=== PATIENT | female | born 1995 | race Caucasian/White ===

== ENCOUNTER 2021-07-28 21:18 | Observation (INO) ==
[2021-07-28] MEDS ORDERED: ACETAMINOPHEN/CODEINE 300-30 MG TABLET PO PRN (21:33)
[2021-07-28 21:55] LABS: Bacteria,Urine Occasional /HPF (Few); Bilirubin,Urine Negative (Negative); Blood, Urine Negative (Negative); Glucose,Urine (UA) Negative (Negative); Ketones,Urine 20 mg/dL (Negative); Mucus,Urine Occasional /LPF (Occasional); Nitrite,Urine Negative (Negative); Protein,Urine Negative; RBC,Urine 4 /HPF (0-4); Squamous Epithelial Cell,Urine Moderate /HPF (0-10); Urine Appearance Slightly Hazy (Clear); Urine Color Yellow (Yellow); Urine Specific Gravity 1.009 (1.001-1.035)
[2021-07-28] MEDS: LACTATED RINGERS 1,000 ML IV SCH (22:10)
[2021-07-28] MEDS: BUTORPHANOL 1 MG/ML VIAL IV PRN (22:25)
[2021-07-28] MEDS: ONDANSETRON 4 MG/2 ML VIAL IV PRN (22:27)
[2021-07-28] MEDS: PIPERACILLIN/TAZOBACTAM 3,375 MG in SODIUM CHLORIDE 0.9% 100 ML IV SCH (22:31)
[2021-07-28 22:56] LABS: Basophils % 0.2 % (0.0-0.8); Hematocrit 31.5 VOL% (35.7-47.0); Hemoglobin 10.2 GM/DL (12.0-16.0); Immature Granulocytes % 0.9 %; Immature Granulocytes Absolute 0.11 #; Lymphocytes % 7.8 % (21.3-54.2); Mean Corpuscular HGB Conc 32.4 GM/DL (32-36); Mean Corpuscular Volume 88.2 FL (87-102); Mean Platelet Volume 9.4 FL (9.6-12.0); Monocytes % 10.3 % (1.7-12.7); Neutrophils % 80.8 % (38.7-73.9); Platelet Count 355 T/CUMM (130-400); Red Blood Count 3.57 MC/CUMM (3.8-5.5); Red Cell Distribution Width 13.9 % (9.3-17.3); White Blood Count 12.5 T/CUMM (4-12)
[2021-07-28 23:17] LABS: Band Neutrophils 1 % (0-10); Lymphocytes 9 % (20-55); Platelet Estimate Normal; Segmented Neutrophils 86 % (50-85); Total Cells Counted 100
[2021-07-28 23:21] LABS: Albumin 2.4 G/DL (3.4-5.0); Bilirubin,Total 0.7 MG/DL (0.20-1.00); Calcium 9.4 MG/DL (8.5-10.1); Osmolality,Calculated 264.2 MOS/KG (273-304); Potassium 3.4 MMOL/L (3.5-5.1); Total Protein 7.6 G/DL (6.4-8.2)
[2021-07-29] MEDS: LACTATED RINGERS 1,000 ML IV SCH ×6 (01:03→22:55)
[2021-07-29] MEDS: BUTORPHANOL 1 MG/ML VIAL IV PRN ×3 (01:44→11:27)
[2021-07-29] MEDS ORDERED: SODIUM CHLORIDE 0.9% 3,400 ML IV ONE (04:30)
[2021-07-29] MEDS: ONDANSETRON 4 MG/2 ML VIAL IV PRN ×2 (04:40→11:34)
[2021-07-29] MEDS: ACETAMINOPHEN 500 MG TABLET PO PRN ×2 (04:47→11:24)
[2021-07-29] MEDS: PIPERACILLIN/TAZOBACTAM 3,375 MG in SODIUM CHLORIDE 0.9% 100 ML IV SCH ×3 (06:00→21:55)
[2021-07-29 06:42] LABS: Bacteria,Urine Occasional /HPF (Few); Bilirubin,Urine Negative (Negative); Blood, Urine Small mg/dL (Negative); Glucose,Urine (UA) Negative (Negative); Ketones,Urine 80 mg/dL (Negative); Mucus,Urine Occasional /LPF (Occasional); Nitrite,Urine Negative (Negative); Protein,Urine Negative; RBC,Urine 4 /HPF (0-4); Squamous Epithelial Cell,Urine Occasional /HPF (0-10); Urine Appearance CLEAR (Clear); Urine Color Amber (Yellow); Urine Specific Gravity 1.012 (1.001-1.035)
[2021-07-29] MEDS ORDERED: fentaNYL 100 MCG/2 ML VIAL ONE (10:26)
[2021-07-29] MEDS ORDERED: SODIUM CHLORIDE 0.9% 100 ML IV ONE (10:26)
[2021-07-29] MEDS ORDERED: propofoL 200 MG/20 ML VIAL IV ONE (10:26)
[2021-07-29] MEDS ORDERED: LIDOCAINE 1% 5 ML VIAL ONE (10:26)
[2021-07-29] MEDS: BUTALBITAL/ACETAMIN/CAFFEINE 50-325-40 MG TABLET PO PRN (15:44)
[2021-07-30] MEDS: ONDANSETRON 4 MG/2 ML VIAL IV PRN ×2 (00:11→23:37)
[2021-07-30] MEDS: BUTORPHANOL 1 MG/ML VIAL IV PRN ×2 (00:11→04:25)
[2021-07-30 05:25] LABS: Basophils % 0.2 % (0.0-0.8); Eosinophils % 0.4 % (0.00-10.9); Hematocrit 27.1 VOL% (35.7-47.0); Hemoglobin 8.5 GM/DL (12.0-16.0); Immature Granulocytes % 0.9 %; Immature Granulocytes Absolute 0.05 #; Lymphocytes # 0.4 10*3/uL (1.4-4.0); Mean Corpuscular HGB Conc 31.4 GM/DL (32-36); Mean Corpuscular Volume 90.3 FL (87-102); Neutrophils % 83.5 % (38.7-73.9); Platelet Count 261 T/CUMM (130-400); Red Cell Distribution Width 14.3 % (9.3-17.3); White Blood Count 5.4 T/CUMM (4-12)
[2021-07-30] MEDS: PIPERACILLIN/TAZOBACTAM 3,375 MG in SODIUM CHLORIDE 0.9% 100 ML IV SCH ×3 (05:26→21:56)
[2021-07-30 05:48] LABS: Anisocytosis 1+; Band Neutrophils 7 % (0-10); Lymphocytes 3 % (20-55); Platelet Estimate Normal; Segmented Neutrophils 81 % (50-85); Total Cells Counted 100
[2021-07-30] MEDS: BUTALBITAL/ACETAMIN/CAFFEINE 50-325-40 MG TABLET PO PRN (08:41)
[2021-07-30] MEDS: MULTIVITAMIN (PRENATAL) TABLET PO SCH (08:41)
[2021-07-30] MEDS ORDERED: CLINDAMYCIN INJ 900 MG/50 ML PREMIX IV SCH (10:00)
[2021-07-30] MEDS: DOCUSATE SODIUM 100 MG CAPSULE PO SCH ×2 (13:05→20:47)
[2021-07-31] MEDS: PIPERACILLIN/TAZOBACTAM 3,375 MG in SODIUM CHLORIDE 0.9% 100 ML IV SCH ×2 (05:49→14:19)
[2021-07-31 08:22] LABS: Calcium 8.6 MG/DL (8.5-10.1); Osmolality,Calculated 270.7 MOS/KG (273-304); Potassium 3.1 MMOL/L (3.5-5.1)
[2021-07-31] MEDS: DOCUSATE SODIUM 100 MG CAPSULE PO SCH ×2 (08:56→20:50)
[2021-07-31] MEDS: MULTIVITAMIN (PRENATAL) TABLET PO SCH (08:56)
[2021-07-31] MEDS ORDERED: NON-FORMULARY MEDICATION (Pnv133-Ferrous Fumarate-Fa [Prenatal] 28-800 mg-mcg Tablet) PO SCH (09:00)
[2021-07-31] MEDS: POTASSIUM CHLORIDE 20 MEQ TABLET PO PRN ×4 (10:45→16:40)
[2021-07-31] MEDS: ONDANSETRON 4 MG/2 ML VIAL IV PRN (11:14)
[2021-07-31] MEDS ORDERED: cefTRIAXone 1,000 MG in SODIUM CHLORIDE 0.9% 100 ML IV SCH (16:00)
== END 2021-08-01 09:45 | disposition home or self-care (01) ==
LOC: N.LD 21:18 → N.LDOUT 21:18 → N.LD 21:23
PROVIDERS: ADMIT Specialist; ATTEND Specialist

== ENCOUNTER 2021-09-03 03:09 | Inpatient (IN) ==
[2021-09-03] MEDS ORDERED: MEPERIDINE 50 MG/1 ML VIAL IV PRN (03:41)
[2021-09-03] MEDS ORDERED: ONDANSETRON 4 MG/2 ML VIAL IV PRN ×2 (03:41→15:47)
[2021-09-03] MEDS ORDERED: BUTORPHANOL 2 MG/ML VIAL IV PRN (03:41)
[2021-09-03 03:59] LABS: Bacteria,Urine Occasional /HPF (Few); Bilirubin,Urine Negative (Negative); Blood, Urine Small mg/dL (Negative); Glucose,Urine (UA) Negative (Negative); Ketones,Urine Negative (Negative); Mucus,Urine Occasional /LPF (Occasional); Nitrite,Urine Negative (Negative); Protein,Urine Negative; RBC,Urine 4 /HPF (0-4); Squamous Epithelial Cell,Urine Few /HPF (0-10); Urine Appearance Slightly Hazy (Clear); Urine Color Yellow (Yellow); Urine Specific Gravity 1.008 (1.001-1.035); Urine Urobilinogen < 2.0 EU/DL (<2.0)
[2021-09-03] MEDS ORDERED: OXYTOCIN/LR 20 UNIT/1,000 ML BAG IV SCH (04:00)
[2021-09-03] MEDS: LACTATED RINGERS 1,000 ML IV PRN ×2 (04:37→07:45)
[2021-09-03 05:00] LABS: Basophils % 0.2 % (0.0-0.8); Eosinophils % 0.3 % (0.00-10.9); Hemoglobin 10.3 GM/DL (12.0-16.0); Immature Granulocytes % 0.8 %; Immature Granulocytes Absolute 0.08 #; Lymphocytes # 1.4 10*3/uL (1.4-4.0); Lymphocytes % 13.6 % (21.3-54.2); Mean Corpuscular HGB Conc 32.2 GM/DL (32-36); Mean Corpuscular Volume 88.9 FL (87-102); Mean Platelet Volume 9.7 FL (9.6-12.0); Neutrophils % 78.1 % (38.7-73.9); Platelet Count 294 T/CUMM (130-400); Red Cell Distribution Width 15.1 % (9.3-17.3); White Blood Count 10.3 T/CUMM (4-12)
[2021-09-03 05:18] LABS: Alanine Aminotransferase 16 U/L (13-56); Albumin 2.6 G/DL (3.4-5.0); Alkaline Phosphatase 170 U/L (45-117); Aspartate Amino Transferase 10 U/L (0-37); Bilirubin,Total < 0.39 MG/DL (0.20-1.00); Blood Urea Nitrogen 4 MG/DL (7-18); Calcium 8.8 MG/DL (8.5-10.1); Carbon Dioxide 22 MMOL/L (21-32); Estimated Glom Filtration Rate 167 ML/MIN; Glucose 93 MG/DL (74-106); Osmolality,Calculated 266.1 MOS/KG (273-304); Potassium 3.5 MMOL/L (3.5-5.1); Sodium 135 MMOL/L (136-145); Total Protein 6.9 G/DL (6.4-8.2)
[2021-09-03] MEDS ORDERED: PROMETHAZINE 25 MG/1 ML VIAL IM PRN (07:21)
[2021-09-03] MEDS ORDERED: diphenhydrAMINE 50 MG/1 ML VIAL IV PRN (07:21)
[2021-09-03] MEDS ORDERED: NALOXONE 0.4 MG/ML VIAL IV PRN (07:21)
[2021-09-03] MEDS ORDERED: CITRIC ACID/SODIUM CITRATE 30 ML UDCUP PO ONE (07:21)
[2021-09-03] MEDS ORDERED: hydrOXYzine HCL 25 MG/1 ML VIAL IM PRN (07:21)
[2021-09-03] MEDS ORDERED: FAMOTIDINE 20 MG/2 ML VIAL IV ONE (07:21)
[2021-09-03] MEDS: fentaNYL 2 MCG/ROPIV 0.2% EPID 100 ML EPIDURAL SCH ×2 (07:56→14:58)
[2021-09-03] MEDS: ePHEDrine 50 MG/ML VIAL IV PRN ×3 (08:42→09:02)
[2021-09-03 10:08] LABS: Bilirubin,Urine Negative (Negative); Blood, Urine Negative (Negative); Glucose,Urine (UA) Negative (Negative); Ketones,Urine 5 mg/dL (Negative); Mucus,Urine Few /LPF (Occasional); Nitrite,Urine Negative (Negative); Protein,Urine Negative; RBC,Urine <1 /HPF (0-4); Squamous Epithelial Cell,Urine Occasional /HPF (0-10); Urine Appearance CLEAR (Clear); Urine Color Yellow (Yellow); Urine Specific Gravity 1.011 (1.001-1.035); Urine Urobilinogen < 2.0 EU/DL (<2.0)
[2021-09-03] MEDS ORDERED: METHYLERGONOVINE 0.2 MG/1 ML AMP ONE (14:39)
[2021-09-03] MEDS ORDERED: miSOPROStoL 200 MCG TABLET ONE (14:39)
[2021-09-03] MEDS ORDERED: BISACODYL 10 MG SUPP RECTAL PRN (15:47)
[2021-09-03] MEDS ORDERED: BENZOCAINE 20%/MENTHOL 0.5% SPRAY 56 GM CAN TOP PRN (15:47)
[2021-09-03] MEDS ORDERED: DIPH/TET/ACEL PERT BOOSTER VACCINE 0.5 ML VIAL IM ONE (15:47)
[2021-09-03] MEDS ORDERED: OXYTOCIN/LR 20 UNIT/1,000 ML BAG IV ONE (15:47)
[2021-09-03] MEDS ORDERED: oxyCODONE/ACETAMINOPHEN 5-325 MG TABLET PO PRN ×2 (15:47)
[2021-09-03] MEDS ORDERED: MEASLES/MUMPS/RUBELLA VACCINE 0.5 ML VIAL SUBCUT ONE (15:47)
[2021-09-03] MEDS ORDERED: ACETAMINOPHEN 325 MG TABLET PO PRN (15:47)
[2021-09-03] MEDS ORDERED: WITCH HAZEL PADS 100/JAR TOP PRN (15:47)
[2021-09-03] MEDS ORDERED: RHO(D) IMMUNE GLOBULIN 300 MCG SYRINGE IM ONE (15:47)
[2021-09-03] MEDS ORDERED: LANOLIN 50% CREAM 0.3 OZ TUBE TOP PRN (15:47)
[2021-09-03] MEDS ORDERED: HYDROCORTISONE 2.5% RECTAL CREAM 30 GM TUBE TOP PRN (15:47)
[2021-09-03 15:49] LABS: Cord Venous Blood HCO3 21.1 MMOL/L; Cord Venous Blood PCO2 41.8 MMHG; Cord Venous Blood PO2 33.3
[2021-09-03] MEDS: IBUPROFEN 800 MG TABLET PO PRN (19:10)
[2021-09-04] MEDS: DOCUSATE SODIUM 100 MG CAPSULE PO SCH ×4 (03:35→20:34)
[2021-09-04 05:13] LABS: Basophils % 0.2 % (0.0-0.8); Eosinophils % 0.3 % (0.00-10.9); Hemoglobin 9.7 GM/DL (12.0-16.0); Immature Granulocytes % 0.4 %; Immature Granulocytes Absolute 0.04 #; Lymphocytes # 1.2 10*3/uL (1.4-4.0); Lymphocytes % 11.4 % (21.3-54.2); Mean Corpuscular HGB Conc 32.3 GM/DL (32-36); Mean Corpuscular Volume 90.6 FL (87-102); Monocytes % 9.1 % (1.7-12.7); Neutrophils % 78.6 % (38.7-73.9); Platelet Count 234 T/CUMM (130-400); Red Blood Count 3.31 MC/CUMM (3.8-5.5); Red Cell Distribution Width 15.3 % (9.3-17.3); White Blood Count 10.2 T/CUMM (4-12)
[2021-09-04] MEDS: IBUPROFEN 800 MG TABLET PO PRN ×2 (07:41→20:33)
[2021-09-05] MEDS: DOCUSATE SODIUM 100 MG CAPSULE PO SCH (08:06)
[2021-09-05] MEDS: IBUPROFEN 800 MG TABLET PO PRN (08:06)
[2021-09-05 09:22] VITALS: BP 113/56
== END 2021-09-05 11:30 | disposition home or self-care (01) | DRG 807 ==
LOC: N.LD 03:09 → N.OB 21:30
PROVIDERS: ADMIT Specialist; ATTEND Obstetrics & Gynecology

== ENCOUNTER 2021-09-08 12:27 | Inpatient (IN) ==
[2021-09-08] MEDS ORDERED: MORPHINE 2 MG/1 ML SYRINGE IV ONE ×2 (14:48→17:46)
[2021-09-08] MEDS: LACTATED RINGERS 1,000 ML IV SCH ×2 (14:55→20:22)
[2021-09-08] MEDS ORDERED: AMPICILLIN/SULBACTAM 3,000 MG in SODIUM CHLORIDE 0.9% 100 ML IV ONE (15:23)
[2021-09-08] MEDS ORDERED: DIAZEPAM 5 MG TABLET PO ONE (15:24)
[2021-09-08] MEDS ORDERED: FAMOTIDINE 20 MG TABLET PO ONE (15:24)
[2021-09-08] MEDS ORDERED: BUPIVACAINE MPF 0.25% 30 ML VIAL ONE (15:55)
[2021-09-08] MEDS ORDERED: LIDOCAINE 1%/EPI INJ 20 ML VIAL ONE (15:55)
[2021-09-08] MEDS ORDERED: SEVOFLURANE 1 UNIT/15 MINUTE INH ONE (16:49)
[2021-09-08] MEDS ORDERED: SUCCINYLCHOLINE 200 MG/10 ML VIAL ONE (16:56)
[2021-09-08] MEDS ORDERED: LIDOCAINE 2% 5 ML VIAL ONE (16:56)
[2021-09-08] MEDS ORDERED: fentaNYL 100 MCG/2 ML VIAL ONE (16:56)
[2021-09-08] MEDS ORDERED: ROCURONIUM 50 MG/5 ML VIAL IV ONE (16:56)
[2021-09-08] MEDS ORDERED: propofoL 200 MG/20 ML VIAL IV ONE (16:56)
[2021-09-08] MEDS ORDERED: LACTATED RINGERS 1,000 ML IV ONE (19:09)
[2021-09-08] MEDS ORDERED: ONDANSETRON 4 MG/2 ML VIAL ONE (19:09)
[2021-09-08] MEDS ORDERED: SODIUM CHLORIDE 0.9% 100 ML IV ONE (19:09)
[2021-09-08] MEDS ORDERED: KETOROLAC 30 MG/1 ML VIAL ONE (19:09)
[2021-09-08] MEDS ORDERED: PHENYLEPHRINE 10 MG/1 ML VIAL IV ONE (19:09)
[2021-09-08] MEDS ORDERED: DEXAMETHASONE 4 MG/1 ML VIAL ONE (19:09)
[2021-09-08] MEDS ORDERED: HYDROmorphone 2 MG/1 ML VIAL ONE (19:23)
[2021-09-08] MEDS ORDERED: MORPHINE 2 MG/1 ML SYRINGE IV PRN (19:25)
[2021-09-08] MEDS: AMPICILLIN/SULBACTAM 3,000 MG in SODIUM CHLORIDE 0.9% 100 ML IV SCH (22:20)
[2021-09-08] MEDS: ONDANSETRON 4 MG/2 ML VIAL IV PRN (22:21)
[2021-09-08] MEDS: MORPHINE 4 MG/1 ML VIAL IV PRN (22:23)
[2021-09-08] MEDS: DEXTROSE 5% LACTATED RINGERS 1,000 ML IV SCH (22:27)
[2021-09-09] MEDS: AMPICILLIN/SULBACTAM 3,000 MG in SODIUM CHLORIDE 0.9% 100 ML IV SCH ×4 (04:36→21:07)
[2021-09-09 05:27] LABS: Basophils % 0.2 % (0.0-0.8); Hematocrit 32.3 VOL% (35.7-47.0); Hemoglobin 10.3 GM/DL (12.0-16.0); Immature Granulocytes % 1.1 %; Immature Granulocytes Absolute 0.12 #; Lymphocytes # 0.9 10*3/uL (1.4-4.0); Lymphocytes % 7.4 % (21.3-54.2); Mean Corpuscular HGB Conc 31.9 GM/DL (32-36); Mean Platelet Volume 9.2 FL (9.6-12.0); Monocytes % 3.5 % (1.7-12.7); Neutrophils % 87.8 % (38.7-73.9); Platelet Count 328 T/CUMM (130-400); Red Blood Count 3.59 MC/CUMM (3.8-5.5); Red Cell Distribution Width 14.5 % (9.3-17.3); White Blood Count 11.4 T/CUMM (4-12)
[2021-09-09 05:41] LABS: Calcium 8.6 MG/DL (8.5-10.1); Osmolality,Calculated 274.7 MOS/KG (273-304)
[2021-09-09] MEDS: PANTOPRAZOLE 40 MG TABLET PO SCH (08:03)
[2021-09-09] MEDS: DEXTROSE 5% LACTATED RINGERS 1,000 ML IV SCH ×3 (08:04→17:36)
[2021-09-09] MEDS: MORPHINE 4 MG/1 ML VIAL IV PRN ×2 (16:30→22:01)
[2021-09-09] MEDS: ONDANSETRON 4 MG/2 ML VIAL IV PRN (16:50)
[2021-09-10] MEDS: DEXTROSE 5% LACTATED RINGERS 1,000 ML IV SCH ×2 (02:49→14:28)
[2021-09-10] MEDS: AMPICILLIN/SULBACTAM 3,000 MG in SODIUM CHLORIDE 0.9% 100 ML IV SCH ×4 (02:53→20:43)
[2021-09-10] MEDS ORDERED: SUCCINYLCHOLINE 200 MG/10 ML VIAL ONE ×2 (10:08→10:52)
[2021-09-10] MEDS ORDERED: fentaNYL 100 MCG/2 ML VIAL ONE (10:08)
[2021-09-10] MEDS ORDERED: FAMOTIDINE 20 MG/2 ML VIAL IV ONE (10:21)
[2021-09-10] MEDS ORDERED: LACTATED RINGERS 1,000 ML IV SCH (10:30)
[2021-09-10] MEDS ORDERED: ONDANSETRON 4 MG/2 ML VIAL ONE (10:52)
[2021-09-10] MEDS ORDERED: LIDOCAINE 2% 5 ML VIAL ONE (10:52)
[2021-09-10] MEDS ORDERED: propofoL 200 MG/20 ML VIAL IV ONE (10:52)
[2021-09-10] MEDS ORDERED: SEVOFLURANE 1 UNIT/15 MINUTE INH ONE (10:52)
[2021-09-10] MEDS ORDERED: ONDANSETRON 4 MG/2 ML VIAL IV PRN (11:33)
[2021-09-10] MEDS ORDERED: PROMETHAZINE INJ 12.5 MG in SODIUM CHLORIDE 0.9% 50 ML IV PRN (11:33)
[2021-09-10] MEDS: PANTOPRAZOLE 40 MG TABLET PO SCH (18:44)
[2021-09-11] MEDS: DEXTROSE 5% LACTATED RINGERS 1,000 ML IV SCH ×2 (01:08→01:09)
[2021-09-11] MEDS: AMPICILLIN/SULBACTAM 3,000 MG in SODIUM CHLORIDE 0.9% 100 ML IV SCH ×2 (03:45→09:29)
[2021-09-11] MEDS: MORPHINE 4 MG/1 ML VIAL IV PRN (05:23)
[2021-09-11] MEDS: ONDANSETRON 4 MG/2 ML VIAL IV PRN (05:25)
[2021-09-11 07:07] LABS: Basophils % 0.6 % (0.0-0.8); Eosinophils # 0.2 10*3/uL (0.0-0.87); Eosinophils % 3.2 % (0.00-10.9); Hematocrit 34.3 VOL% (35.7-47.0); Hemoglobin 10.9 GM/DL (12.0-16.0); Immature Granulocytes % 0.6 %; Immature Granulocytes Absolute 0.03 #; Lymphocytes # 1.6 10*3/uL (1.4-4.0); Mean Corpuscular HGB Conc 31.8 GM/DL (32-36); Mean Corpuscular Volume 89.6 FL (87-102); Mean Platelet Volume 9.3 FL (9.6-12.0); Monocytes % 8.4 % (1.7-12.7); Neutrophils % 56.2 % (38.7-73.9); Platelet Count 384 T/CUMM (130-400); Red Blood Count 3.83 MC/CUMM (3.8-5.5); Red Cell Distribution Width 14.1 % (9.3-17.3)
[2021-09-11 07:31] LABS: Calcium 9.1 MG/DL (8.5-10.1); Osmolality,Calculated 270.7 MOS/KG (273-304); Potassium 3.4 MMOL/L (3.5-5.1)
[2021-09-11] MEDS: PANTOPRAZOLE 40 MG TABLET PO SCH (09:30)
[2021-09-11 14:38] VITALS: BP 131/69
== END 2021-09-11 15:01 | disposition home or self-care (01) | DRG 603 ==
LOC: N.SDSINP 12:27 → N.ULTRA 12:27 → N.SDSINP 14:36 → EDSTATUS 16:00 → N.5E 19:25
PROVIDERS: ADMIT Surgery; ATTEND Surgery